=== PATIENT | female | born 1990 | race Caucasian/White ===

== ENCOUNTER 2019-05-28 08:03 | Emergency (ER) | payer BC ==
--- NOTE | 2019-05-28 08:50 | EDM.PDOC ---
ED HPI GENERAL MEDICAL PROBLEM - General Chief Complaint: Syncope Stated Complaint: 819 Time Seen by Provider: 05/28/19 08:20 Source of Information: Reports: Patient, Significant Other History Limitations: Reports: No Limitations - History of Present Illness INITIAL COMMENTS - FREE TEXT/NARRATIVE: Kori presents with her for an episode of syncope happening just prior to arrival. She was in a very warm cabin, dressed to go ice fishing, and felt woozy in ascending from a chair. Within seconds, she appeared pale, and had a temporary loss of consciousness. She quickly came to, and had only minimal injury, related to abrasions of her nasal area. She has been in good health, and is 17 weeks with confirmed IUP. No bleeding, headache, nausea, chest/abdominal pain, and hasn't neen ill at all. Similar syncopal episode coming out of a hot tub on remote basis. No SOB or palpitations. Social & Family History - Living Situation & Occupation Living situation: Reports: Occupation: Employed Social History Comment: pharmacist ED ROS GENERAL - Review of Systems Review Of Systems: Comprehensive ROS is negative, except as noted in HPI. ED EXAM, GENERAL - Physical Exam Exam: See Below Exam Limited By: No Limitations General Appearance: Alert, WD/WN, No Apparent Distress Eye Exam: Bilateral Eye: EOMI, PERRL Ears: Normal External Exam Nose: Other (abrasions noted without deformity) Throat/Mouth: Normal Inspection, Normal Lips, Normal Teeth Head: Atraumatic, Normocephalic Neck: Normal Inspection, Supple, Non-Tender, Full Range of Motion Respiratory/Chest: No Respiratory Distress, Lungs Clear, Normal Breath Sounds Cardiovascular: Regular Rate, Rhythm, No Edema, No Gallop, No Murmur GI/Abdominal: Normal Bowel Sounds, Soft, Non-Tender Back Exam: Normal Inspection Extremities: Normal Inspection, Normal Range of Motion, Non-Tender, Normal Capillary Refill Neurological: Alert, Oriented, Normal Cognition, No Motor/Sensory Deficits Psychiatric: Normal Affect Skin Exam: Warm, Dry, Intact Lymphatic: No Adenopathy Course - Vital Signs Text/Narrative:: Doppler heart tones in 140's Last Recorded V/S: Last Vital Signs Temp 98.3 F 05/28/19 08:19 Pulse 69 05/28/19 08:19 Resp 16 05/28/19 08:19 BP 109/69 05/28/19 08:19 Pulse Ox 99 05/28/19 08:19 - Orders/Labs/Meds Orders: Active Orders 24 hr Category Date Time Status EKG Documentation Completion [RC] ASDIRECTED Care 05/28/19 08:16 Active Labs: Laboratory Tests 05/28/19 05/28/19 05/28/19 Range/Units 08:19 08:35 08:35 WBC 11.2 H (4.0-11.0) K/uL RBC 3.46 L (3.80-5.80) M/uL Hgb 11.0 L (11.5-16.5) g/dL Hct 30.8 L (37.0-47.0) % MCV 89 (76-96) fL MCH 31.8 (27.0-32.0) pg MCHC 35.7 H (31.0-35.0) g/dL RDW 12.1 (11.0-16.0) % Plt Count 226 (150-500) K/uL MPV 9.6 (6.0-10.0) fL Neut % (Auto) 78.0 H (45.0-70.0) % Lymph % (Auto) 14.3 L (20.0-40.0) % [place] % (Auto) 5.6 (3.0-10.0) % Eos % (Auto) 1.9 (1.0-5.0) % Baso % (Auto) 0.2 (0.0-0.5) % Neut # (Auto) 8.71 H (2.00-7.50) K/uL Lymph # (Auto) 1.60 (1.50-4.00) K/uL [place] # (Auto) 0.62 (0.20-0.80) K/uL Eos # (Auto) 0.21 (0.04-0.40) K/uL Baso # (Auto) 0.02 (0.02-0.10) K/uL Sodium 135 L (136-145) mmol/L Potassium 4.2 (3.5-5.1) mmol/L Chloride 101 (98-107) mmol/L Carbon Dioxide 24.9 (21.0-32.0) mmol/L Anion Gap 13.3 (5.0-15.0) mmol/L BUN 10 (8-26) mg/dL Creatinine 0.76 (0.55-1.02) mg/dL Est Cr Clr Drug Dosing 90.35 mL/min Estimated GFR (MDRD) > 60 (>60) MLS/MIN BUN/Creatinine Ratio 13.2 (6-25) Glucose 85 (74-100) mg/dL Calcium 8.5 (8.5-10.1) mg/dL Total Bilirubin 0.2 (0.0-1.0) mg/dL AST 16 (15-37) U/L ALT 15 (12-78) U/L Alkaline Phosphatase 37 L (46-116) U/L Total Protein 6.7 (6.4-8.2) g/dL Albumin 3.1 L (3.4-5.0) g/dL Globulin 3.6 (2.2-4.2) g/dL Albumin/Globulin Ratio 0.9 (0.8-2.0) Urine Color Yellow Urine Appearance Clear (CLEAR) Urine pH 7.0 (5.0-8.0) Ur Specific [place] 1.015 (1.003-1.030) Urine Protein Negative (NEGATIVE) mg/dL Urine Glucose (UA) Negative (NEGATIVE) mg/dL Urine Ketones Negative (NEGATIVE) mg/dL Urine Occult Blood Negative (NEGATIVE) Urine Nitrite Negative (NEGATIVE) Urine Bilirubin Negative (NEGATIVE) Urine Urobilinogen 0.2 (0.2-1.0) E.U./dL Ur Leukocyte Esterase Negative (NEGATIVE) Departure - Departure Time of Disposition: 09:20 Disposition: Home, Self-Care 01 Clinical Impression: Vasovagal syncope - Discharge Information Instructions: Syncope, [id number] Referrals: PCP,None [Primary Care Provider] - Forms: ED Department Discharge Care Plan Goals: Return to hospital with any questions or concerns. Sepsis Event Note - Evaluation Sepsis Screening Result: No Definite Risk - Focused Exam Vital Signs: Vital Signs Temp Pulse Resp BP Pulse Ox 05/28/19 08:19 98.3 F 69 16 109/69 99 Date Exam was Performed: 05/28/19 Time Exam was Performed: 09:41 - My Orders Last 24 Hours: My Active Orders 05/28/19 08:16 EKG Documentation Completion [RC] ASDIRECTED - Assessment/Plan Last 24 Hours: My Active Orders 05/28/19 08:16 EKG Documentation Completion [RC] ASDIRECTED Assessment:: Vasovagal syncope in setting of unremarkable 2nd trimester IUP- explained pathophysiology and reviewed findings of unremarkable work up. Discharged with instructions to return and/or see MD if any further issues
== END 2019-05-28 09:21 | disposition home or self-care (01) ==
LOC: LB.ED 08:03
DX: O99.89 Other specified diseases and conditions complicating pregnancy, childbirth and the puerperium (principal); R55 Syncope and collapse; O9A.212 Injury, poisoning and certain other consequences of external causes complicating pregnancy, second trimester; S00.31XA Abrasion of nose, initial encounter; Z3A.17 17 weeks gestation of pregnancy; X58.XXXA Exposure to other specified factors, initial encounter; Y92.89 Other specified places as the place of occurrence of the external cause
CPT/HCPCS: 36415; 80053; 81003; 85025; 93005; 99283; 99284-25